=== PATIENT | female | born 1950 ===

== ENCOUNTER 2018-03-21 11:41 | Emergency (ER) | payer MEDICARE, OTHER ==
--- NOTE | 2018-03-21 11:48 | UC ---
Back Pain HPI - HPI Summary HPI Summary: 67 yo female presents with low back pain. She tells me that she is from [place] and 2 weeks ago developed low back pain after lifting her grandsons, but it wasn 't bad. She continued with her usual activities. About 1 week ago she bent down to get something in the refrigerator and felt a strong pull in her lower back with immediate pain. She went to urgent care in [place] and was dx'd with ? bursitis and advised to take naproxen. She did this with no relief. Pain increased and went to the ER the next day where they did an MRI revealing a bulging disk in her lumbar spine with left nerve impingement. She was rx'd prednisone, naproxen, norco, and gabapentin. She also went to physical therapy twice, which she thinks helped significantly. She is now in [place] visiting her son for 2 weeks and is requesting a referral to PT here to continue her therapy. She also has worsening pain at bedtime and says the norco does not help much. She has finished the prednisone. She does have some numbness and weakness in her left leg. Denies saddle anesthesia, loss of bowel/bladder control, dysuria, SOB, chest pain. - History of Current Complaint Stated Complaint: NEED PT REFFERAL Time Seen by Provider: 03/21/18 11:47 Hx Obtained From: Patient Onset/Duration: Sudden Onset Severity Initially: Moderate Severity Currently: Moderate Pain Intensity: 5 Pain Scale Used: 0-10 Numeric - Allergies/Home Medications Allergies/Adverse Reactions: Allergies Allergy/AdvReac Type Severity Reaction Status Date / Time No Known Allergies Allergy Verified 03/21/18 11:56 Home Medications: Home Medications Aspirin 81 mg PO DAILY 03/21/18 [History Confirmed 03/21/18] Atorvastatin* [Lipitor 20 MG*] 1 tab PO DAILY 03/21/18 [History Confirmed ] Calcium Carbonate [Calcium] 500 mg PO DAILY 03/21/18 [History Confirmed 03/21/18 ] Cholecalciferol (Vitamin D3) [Vitamin D3] 1,000 unit PO DAILY 03/21/18 [History Confirmed 03/21/18] Famotidine 10 mg PO DAILY 03/21/18 [History Confirmed 03/21/18] Gabapentin 300 mg PO QID 03/21/18 [History Confirmed 03/21/18] Hydrocodone/Acetaminophen [Hydrocodone-Acetamin 2.5-325] 1 tab PO Q6HR PRN 03/21 [History Confirmed 03/21/18] Multivitamin [Multivitamins] 1 cap PO DAILY 03/21/18 [History Confirmed 03/21/18 ] Naproxen [Naprosyn 500 mg tab] 500 mg PO BID 03/21/18 [History Confirmed ] diphenhydrAMINE HCl [Benadryl Allergy] 50 mg PO QPM PRN 03/21/18 [History Confirmed 03/21/18] predniSONE [Prednisone 5 MG TAB] 5 mg PO DAILY 03/21/18 [History Confirmed 03/21] PMH/Surg Hx/FS Hx/Imm Hx Endocrine History: Dyslipidemia - Family History Known Family History: Positive: None - Social History Occupation: Retired Lives: With Family Alcohol Use: Occasionally Substance Use Type: None Smoking Status (MU): Never Smoked Tobacco Review of Systems All Other Systems Reviewed And Are Negative: Yes Constitutional: Positive: Negative Skin: Positive: Negative Respiratory: Positive: Negative Cardiovascular: Positive: Negative Gastrointestinal: Positive: Negative Genitourinary: Positive: Negative Neurovascular: Positive: Negative Musculoskeletal: Positive: Other: - Low back pain Neurological: Positive: Weakness, Numbness Psychological: Positive: Negative Physical Exam - Summary Physical Exam Summary: GENERAL: NAD. WDWN. No pain distress. SKIN: No rashes, sores, lesions, or open wounds. NECK: Supple. FROM. Nontender. No lymphadenopathy. CHEST: CTAB. No r/r/w. No accessory muscle use. Breathing comfortably and in no distress. CV: RRR. Without m/r/g. Pulses intact. Cap refill <2seconds MSK: TTP over LEFT SI. Pain with flexion and extension of spine. Positive SLR on left for low back pain with radiation down left leg. Strength 3/5 left compared to 5/5 right. Decreased strength on LEFT with dorsiflexion and plantar flexion. FROM B/L LEs. No edema. Patella reflex diminished on left NEURO: Alert. Sensations intact B/L LEs L3-S1, but feel decreased on LEFT. PSYCH: Age appropriate behavior. Triage Information Reviewed: Yes Vital Signs: Vital Signs: Temp Pulse Resp BP Pulse Ox 97.2 F 71 18 131/86 99 03/21/18 11:47 03/21/18 11:47 03/21/18 11:47 03/21/18 11:47 03/21/18 11:47 Vital Signs Reviewed: Yes Back Pain Course/Dx - Course Course Of Treatment: Her pain is likely from her disk issue. Will have her stop taking norco and have her try percocet at bedtime. Will refer her to physical therapy and f/u with PCP when she returns to [place]. - Differential Dx/Diagnosis Provider Diagnosis: L4-L5 disc bulge, Low back pain radiating to left leg Discharge - Sign-Out/Discharge Documenting (check all that apply): Patient Departure All imaging exams completed and their final reports reviewed: No Studies - Discharge Plan Condition: Stable Disposition: HOME Prescriptions: Oxycodone HCl/Acetaminophen [Percocet 5-325 mg Tablet] 1 each PO BEDTIME PRN #5 tablet MDD 1 PRN Reason: Pain Patient Education Materials: Sciatica (ED) Referrals: No Primary Care Phys,NOPCP [Primary Care Provider] - Additional Instructions: If you develop a fever, shortness of breath, chest pain, new or worsening symptoms - please call your PCP or go to the ED. 1) Stop taking the [place] and start Percocet at bedtime if needed 2) Please follow up with physical therapy - Billing Disposition and Condition Condition: STABLE Disposition: Home
[2018-03-21 11:56] VITALS: BP 131/86
== END 2018-03-21 12:33 | disposition home or self-care (01) ==
LOC: UCEAST 11:41
DX: M51.26 Other intervertebral disc displacement, lumbar region (principal); M54.42 Lumbago with sciatica, left side; E78.5 Hyperlipidemia, unspecified
CPT/HCPCS: 99202; G0463